=== PATIENT | male | born 1990 | race African-American/Black ===

== ENCOUNTER 2017-07-10 07:51 | Emergency (ER) | payer OTHER ==
[2017-07-10] MEDS ORDERED: DEXAMETHASONE 10 MG/ML VIAL PO STA (08:11)
--- NOTE | 2017-07-10 08:13 | ED Physician Documentation ---
PD HPI URI - Stated complaint Stated Complaint: KISER/COUGH/CONGESTION - Chief complaint Chief Complaint: General - History obtained from History obtained from: Patient, Family - History of Present Illness Timing - onset: How many days ago (3) Timing duration: Days (3) Timing details: Gradual onset, Still present Associated symptoms: Fever, Chills, Sweats, Nasal congestion, Rhinorrhea, Sore throat, Productive cough, Dyspnea, Other (headache) Contributing factors: Sick contact (brother sick with similar last week) Improves by: Rest, Medication Worsened by: Activity Similar symptoms before: Has not had sx before Recently seen: Not recently seen - Additional information Additional information: Previously healthy 27-year-old male with 3 days of symptoms including myalgias and fever associated with cough congestion and sneezing. He has had some bloody mucus as well. Review of Systems Constitutional: reports: Fever, Chills, Myalgias, Fatigue Eyes: denies: Decreased vision Ears: denies: Ear pain Nose: reports: Rhinorrhea / runny nose, Congestion Throat: reports: Sore throat Cardiac: denies: Chest pain / pressure, Palpitations Respiratory: reports: Dyspnea, Cough GI: denies: Abdominal Pain, Nausea, Vomiting : denies: Dysuria, Frequency Skin: denies: Rash Musculoskeletal: denies: Neck pain, Back pain, Extremity pain Neurologic: reports: Headache. denies: Generalized weakness, Focal weakness, Numbness, Head injury, LOC PD PAST MEDICAL HISTORY - Past Medical History Past Medical History: No - Past Surgical History Past Surgical History: No - Present Medications Home Medications: Ambulatory Orders Medication Instructions Recorded Confirmed Azithromycin [Zithromax] 250 mg PO DAILY #6 tablet 07/10/17 - Allergies Allergies/Adverse Reactions: Allergies Allergy/AdvReac Type Severity Reaction Status Date / Time No Known Drug Allergies Allergy Verified 07/10/17 07:59 - Social History Does the pt smoke?: Yes Smoking Status: Current every day smoker Does the pt drink ETOH?: Yes Does the pt have substance abuse?: No - Immunizations Immunizations are current?: Yes PD ED PE NORMAL - Vitals Vital signs reviewed: Yes (Hypertensive) - General General: No acute distress, Well developed/nourished - HEENT HEENT: Atraumatic, PERRL, EOMI, Other (The left TM is erythematous with rounding of the landmarks the right is clear the pharynx is with generalized erythema mild exudate.) - Neck Neck: Supple, no meningeal sign, No bony TTP - Cardiac Cardiac: RRR, No murmur - Respiratory Respiratory: No respiratory distress, Clear bilaterally - Abdomen Abdomen: Soft, Non tender - Back Back: No CVA TTP, No spinal TTP - Derm Derm: Normal color, Warm and dry, No rash - Extremities Extremities: No deformity, No edema - Neuro Neuro: No motor deficit, No sensory deficit Eye Opening: Spontaneous Motor: Obeys Commands Verbal: Oriented GCS Score: 15 - Psych Psych: Normal mood, Normal affect Results - Vitals Vitals: Vital Signs - 24 hr 07/10/17 07:53 Temperature 36.7 C Heart Rate 94 Respiratory 14 Rate Blood Pressure 159/106 H O2 Saturation 100 Oxygen O2 Source Room air - Labs Labs: Laboratory Tests 07/10/17 07/10/17 08:10 08:15 Influenza A (Rapid) Negative Influenza B (Rapid) Negative Influenza Types A,B Ag - Group A Strep Rapid Negative PD MEDICAL DECISION MAKING - ED course Complexity details: reviewed results, re-evaluated patient, considered differential, d/w patient, d/w family ED course: 27-year-old male with cough myalgias arthralgias and fever has otitis on examination and is given dexamethasone 10 mg orally in the emergency department. Rapid strep and influenza are pending and they are both negative. Departure - Departure Disposition: 01 Home, Self Care Clinical Impression: Otitis media Qualifiers: Otitis media type: suppurative Chronicity: acute Laterality: left Recurrence: not specified as recurrent Spontaneous tympanic membrane rupture: without spontaneous rupture Qualified Code(s): H66.002 - Acute suppurative otitis media without spontaneous rupture of ear drum, left ear Instructions: ED Otitis Media Acute Adult Follow-Up: [facility] [Provider Group] Prescriptions: Azithromycin [Zithromax] 250 mg PO DAILY #6 tablet Comments: Today in the Emergency Department your blood pressure was elevated. This can happen from the stress of the visit itself, from a current illness or circumstance or from uncontrolled hypertension. If you take blood pressure medications take your usual mediations, have your blood pressure re-checked in an appropriate setting and follow up any elevation with your primary care doctor.
[2017-07-10] MEDS ORDERED: DEXAMETHASONE 10 MG/ML VIAL ONE (08:24)
[2017-07-10] MEDS ORDERED: CHERRY SYRUP 10 ML UDC PO ONE (08:24)
[2017-07-10 08:34] LABS: RAPID STREP SCREEN REAGENT QC YELLOW (YELLOW)
[2017-07-10 08:48] VITALS: BP 141/91
== END 2017-07-10 08:48 | disposition home or self-care (01) ==
LOC: ED 07:51
DX: H66.002 Acute suppurative otitis media without spontaneous rupture of ear drum, left ear (principal); R03.0 Elevated blood-pressure reading, without diagnosis of hypertension; F17.200 Nicotine dependence, unspecified, uncomplicated
CPT/HCPCS: 87070; 87275; 87276; 87430; 99283; A9270

== ENCOUNTER 2017-09-06 23:16 | Outpatient (CLI) | payer OTHER | END 2017-09-06 23:17 | disposition critical access hospital (66) | LOC: EMS 23:16 | PROVIDERS: ATTEND Surgery | DX: R55 Syncope and collapse (principal); R11.10 Vomiting, unspecified | CPT/HCPCS: A0425; A0429 ==

== ENCOUNTER 2017-09-06 23:37 | Emergency (ER) | payer OTHER ==
[2017-09-06 23:43] VITALS: BP 146/102
== END 2017-09-07 00:14 | disposition left against medical advice (07) ==
LOC: EDUNIT# → ED 23:37
DX: Z53.21 Procedure and treatment not carried out due to patient leaving prior to being seen by health care provider (principal)
CPT/HCPCS: 99283